=== PATIENT | female | born 1950 | race Caucasian/White ===

== ENCOUNTER 2017-04-12 13:26 | Emergency (ER) | payer OTHER ==
[2017-04-12 14:48] LABS: HEMOGLOBIN 11.4 gm/dl (12.3-15.3); RED BLOOD COUNT 4.2 M/UL (4.00-5.10); WHITE BLOOD COUNT 9.9 K/UL (4.5-11.0)
[2017-04-12 15:09] LABS: BUN/CREATININE RATIO 15 (0-10)
== END 2017-04-12 23:45 | disposition short-term general hospital (02) ==
LOC: ER1 13:26
PROVIDERS: Emergency Medicine
DX: S22.41XA Multiple fractures of ribs, right side, initial encounter for closed fracture (principal); S00.05XA Superficial foreign body of scalp, initial encounter; S00.85XA Superficial foreign body of other part of head, initial encounter; I10 Essential (primary) hypertension; V89.2XXA Person injured in unspecified motor-vehicle accident, traffic, initial encounter; Y93.89 Activity, other specified; Y92.410 Unspecified street and highway as the place of occurrence of the external cause; Z23 Encounter for immunization
CPT/HCPCS: 36415; 70450; 70486; 70498; 71010; 71260; 72125; 72128; 72131; 73130; 73564; 80053; 81001; 82550; 82553; 83690; 83874; 83880; 84484; 85025; 85610; 85730; 87077; 87086; 87186; 90471; 90715; 93005; 96361; 96365; 96375; 96376; 99285; J0690; J2270; J2405; J2550; J7030; J7050; Q9963

== ENCOUNTER 2017-04-16 17:16 | Emergency (ER) | payer OTHER, MEDICARE ==
[2017-04-16 20:14] LABS: HEMOGLOBIN 9.7 gm/dl (12.3-15.3); RED BLOOD COUNT 3.62 M/UL (4.00-5.10); WHITE BLOOD COUNT 4.5 K/UL (4.5-11.0)
[2017-04-16 20:30] LABS: BUN/CREATININE RATIO 9 (0-10)
== END 2017-04-17 00:25 | disposition home or self-care (01) ==
LOC: ER1 17:16
PROVIDERS: Family Medicine
DX: J98.11 Atelectasis (principal); D50.0 Iron deficiency anemia secondary to blood loss (chronic); E11.9 Type 2 diabetes mellitus without complications; I10 Essential (primary) hypertension; Z79.84 Long term (current) use of oral hypoglycemic drugs; Z90.49 Acquired absence of other specified parts of digestive tract; Z88.6 Allergy status to analgesic agent; Z91.040 Latex allergy status; V49.9XXA Car occupant (driver) (passenger) injured in unspecified traffic accident, initial encounter; R19.7 Diarrhea, unspecified
CPT/HCPCS: 36415; 71020; 80053; 81001; 85025; 87040; 96361; 96374; 96375; 99284; J2270; J2405

== ENCOUNTER → 2021-05-30 | Outpatient (CLI) | payer MEDICARE, OTHER | LOC: MAMO 14:00 | DX: Z12.31 Encounter for screening mammogram for malignant neoplasm of breast (principal) | CPT/HCPCS: 77063; 77067 ==